=== PATIENT | female | born 1995 | race Caucasian/White ===

== ENCOUNTER 2018-09-02 19:54 | Emergency (ER) | payer MEDICAID ==
--- NOTE | 2018-09-02 20:32 | EDPHY ---
H & P Time Seen by Provider: 09/02/18 20:03 HPI/ROS: This patient complains of 1 day history of nasal congestion associated with moderate sore throat, moderate right ear pain and a dry hacky cough. She reports subjective fevers associated with this, fatigue, mild intermittent lightheadedness and myalgias. Her recent medical history is notable for being -8 weeks 1st trimester intrauterine . She is accompanied by her fiancee who drove her in for evaluation tonight. ROS: Constitutional: No high fevers or chills. Positive fatigue HEENT: As per HPI. No difficulty swallowing. No ear drainage Pulmonary: No pleuritic pain. No respiratory distress. She has been using DuoNeb with partial improvement. No other exacerbating factors. Cardiovascular: No chest pain GI: No complaints : No vaginal bleeding Integumentary: No skin rash Musculoskeletal: No joint pain 10 point review of symptoms is performed and otherwise negative with exception of pertinent positives and negatives listed in HPI and ROS Smoking Status: Never smoked Physical Exam: Physical Exam Vital signs are normal. General: No acute distress HEENT: Nose: Clear discharge bilaterally. No sinus tenderness to percussion. Ears: External canals and tympanic membranes are clear with no erythema or abnormal findings except for a clear effusion to the right TM with mild bulge. Left external canal and TM are normal.. Oropharynx: Mild erythema. No exudates. No dysphonia. No drooling or stridor. Eyes: Pupils equal and react to light. Extraocular motions are intact. Neck: Supple with no meningismus. No lymphadenopathy Lungs: Very faint expiratory wheeze with occasional dry cough. No rales or rhonchi. Cardiac: Regular rate and rhythm with no murmur gallop or rub Skin: No rash or pallor. Neuro: Alert with no focal deficits noted. Initial differential diagnosis: Viral URI with cough, serous otitis, influenza , strep pharyngitis Constitutional: Initial Vital Signs Temperature (C) 36.9 C 09/02/18 20:17 Heart Rate 79 09/02/18 20:17 Respiratory Rate 16 09/02/18 20:17 Blood Pressure 115/70 09/02/18 20:17 O2 Sat (%) 99 09/02/18 20:17 O2 Delivery Mode Room Air Allergies/Adverse Reactions: No Known Allergies Allergy (Unverified 09/02/18 20:21) Home Medications: Medication Instructions Recorded Albuterol Sulfate [Proair Hfa] 09/02/18 Albuterol [Proventil Inhaler HFA 1 - 2 puffs IH Q4PRN PRN #1 mdi 09/02/18 (*)] Fluticasone/Salmeter 250/50Mcg 09/02/18 [Advair 250/50 (*)] Ipratropium/Albuterol [Duoneb (*)] 09/02/18 MDM/Departure - MDM Medications Given: Discontinued Medications Albuterol/Ipratropium (Duoneb) 3 ml IH EDNOW ONE Stop: 09/02/18 21:08 Last Admin: 09/02/18 21:16 Dose: 3 ml ED Course/Re-evaluation: DuoNeb here in the emergency department with reduction of cough frequency and wheezing. Counseled regarding serous otitis and viral URI. Her rapid strep and influenza test were negative. Clinically she does not have evidence of lower respiratory infection, sepsis or other red flag findings. Also, she does not have significant reactive airway symptoms currently only minimal wheeze. Since she has minimal symptoms and steroids are considered class C in 1st trimester I advised against steroids for this patient's treatment. She agrees with this plan will follow up with primary care physician for any ongoing symptoms with plan to use humidifier, Tylenol and inhalers for her symptoms as needed - Depart Disposition: Home, Routine, Self-Care Clinical Impression: Viral URI with cough Serous otitis media Qualifiers: Chronicity: acute Laterality: right Recurrence: non-recurrent Qualified Code(s) : H65.01 - Acute serous otitis media, right ear Condition: Good Instructions: Upper Respiratory Infection (ED), Serous Otitis Media (ED) Additional Instructions: Diagnosis: Viral URI with cough 2. Serous otitis 3. Viral pharyngitis Plan: Humidifier Tylenol for discomfort as needed Continue albuterol or DuoNeb for cough, wheeze or shortness of breath. Follow up with primary care physician for any ongoing symptoms Return emergency department for any significant worsening despite the treatment plan. Stand Alone Forms: Work Excuse Prescriptions: Albuterol [Proventil Inhaler HFA (*)] 1 - 2 puffs IH Q4PRN PRN #1 mdi PRN Reason: cough, wheeze Referrals: NONE *PRIMARY CARE P,. [Primary Care Provider] - As per Instructions Rubén Anderson MD [Medical Doctor] - As per Instructions
[2018-09-02] MEDS ORDERED: IPRATROPIUM/ALBUTEROL 3 ML DEYVIAL IH ONE (21:07)
[2018-09-02 21:21] VITALS: BP 110/62
== END 2018-09-02 21:29 | disposition home or self-care (01) ==
LOC: CED 19:54
DX: O98.511 Other viral diseases complicating pregnancy, first trimester (principal); Z3A.08 8 weeks gestation of pregnancy
CPT/HCPCS: 99283-ER

== ENCOUNTER 2018-11-11 06:58 | Emergency (ER) | payer MEDICAID ==
[2018-11-11 07:11] VITALS: BP 116/76
--- NOTE | 2018-11-11 07:13 | EDPHY ---
H & P Stated Complaint: Urinary frequency, urgency, and pain x 1 day Time Seen by Provider: 11/11/18 07:02 HPI/ROS: 23-year-old female presents complaining of urinary urgency, frequency that began yesterday. She is approximately 17 weeks by dates and had a normal visit last week within normal urine. She denies vaginal bleeding. No nausea or vomiting, no flank pain, no fevers or chills Review of systems As per HPI General no fever no chills no weakness HEENT no eye pain no eye discharge. No eye redness, no sore throat Respiratory no cough, no shortness of breath Cardiac no chest pain, no peripheral edema GI no abdominal pain, no diarrhea, no constipation, no nausea, no vomiting no flank pain, no hematuria, positive dysuria Musculoskeletal no myalgias, no joint pain Heme no easy bruising, no easy bleeding Endo no polyuria, no polydipsia Skin no rashes, no pruritus Neuro no syncope, no dizziness, no headaches Source: Patient Exam Limitations: No limitations - Personal History LMP (Females 10-55): Current Tetanus Diphtheria and Acellular Pertussis (TDAP): Yes Tetanus Vaccine Date: within 10 years - Medical/Surgical History Hx Asthma: Yes Hx Chronic Respiratory Disease: No Hx Diabetes: No Hx Cardiac Disease: No Hx Renal Disease: No Hx Cirrhosis: No Hx Alcoholism: No Hx HIV/AIDS: No Hx Splenectomy or Spleen Trauma: No Other PMH: asthma - Family History Significant Family History: No pertinent family hx - Social History Smoking Status: Current some day smoker - Physical Exam Exam: 23 yo F Female alert and oriented in no acute distress nontoxic appearance, afebrile Atraumatic normocephalic Neck supple Lungs clear to auscultation bilaterally Heart regular rate and rhythm Abdomen normoactive bowel sounds soft mild suprapubic tenderness no guarding no rebound Back no CVA tenderness Extremities no cyanosis clubbing or edema Skin no rash Constitutional: Initial Vital Signs Temperature (C) 37.2 C 11/11/18 07:06 Heart Rate 96 11/11/18 07:06 Respiratory Rate 16 11/11/18 07:06 Blood Pressure 116/76 11/11/18 07:06 O2 Sat (%) 98 11/11/18 07:06 O2 Delivery Mode Room Air Allergies/Adverse Reactions: azithromycin Allergy (Verified 11/11/18 07:07) Pt reports hives Penicillins Allergy (Verified 11/11/18 07:07) Pt reports hives Sulfa (Sulfonamide Antibiotics) Allergy (Verified 11/11/18 07:07) Pt reports hives Home Medications: Medication Instructions Recorded Ipratropium/Albuterol [Duoneb (*)] 09/02/18 Advair 100/50 (*) 11/11/18 Cephalexin 500 mg PO TID 5 Days #15 tablet 11/11/18 Proair Hfa 11/11/18 Zyrtec 11/11/18 Medical Decision Making ED Course/Re-evaluation: Patient seen and evaluated for dysuria Similar to prior urinary tract infections. Urine dip positive for leukocytes Urine culture sent to [facility] lab Impression Urinary tract infection Plan Cephalexin 500 three times daily x5 days Return as needed Differential Diagnosis: Differential diagnosis considered but not limited to: Urinary tract infection, pyelonephritis, vaginal bleeding - Data Points Point of Care Test Results: Urine Dip Collection Date 11/11/18 Collection Time 07:00 Specific [place] (1.002-1.030) 1.025 PH (5.0-7.5) 6.5 Leukocytes (Negative) 1+ Nitrites (Negative) Negative Protein (Negative) 2+ Glucose (Negative) Negative Ketones (Negative) Negative Urobilnogen (0.2-1.0 EU) 0.2 Bilirubin (Negative) Negative Blood (Negative) 3+ Departure - Departure Disposition: Home, Routine, Self-Care Clinical Impression: Urinary tract infection Condition: Good Instructions: Urinary Tract Infection in (ED) Referrals: Patient,NotPresent [Primary Care Provider] - As per Instructions Stand Alone Forms: Work Excuse Prescriptions: Cephalexin 500 mg PO TID 5 Days #15 tablet
== END 2018-11-11 07:31 | disposition home or self-care (01) ==
LOC: CED 06:58
DX: O23.42 Unspecified infection of urinary tract in pregnancy, second trimester (principal); Z3A.17 17 weeks gestation of pregnancy
CPT/HCPCS: 99283-ER

== ENCOUNTER → 2018-12-07 | Outpatient (CLI) | payer MEDICAID | LOC: FIMAGING 10:29 | PROVIDERS: ATTEND Obstetrics & Gynecology | DX: Z34.82 Encounter for supervision of other normal pregnancy, second trimester (principal); Z3A.20 20 weeks gestation of pregnancy ==